=== PATIENT | female | born 1975 | race African-American/Black ===

== ENCOUNTER 2019-12-16 00:42 | Day surgery (SDC) | payer OTHER, SELFPAY ==
[2019-12-13 15:29] VITALS: BMI 32.8
--- NOTE | 2019-12-16 08:30 | WPDANESEPPF ---
Anes - Initial Pre Proc Eval Procedure: Operation Date: 12/16/19 10:00 Proposed Procedures p Esophagogastroduodenoscopy & Colonoscopy - Maulik Santiago MD Date/Time: 12/16/19 08:30 Surgeon: Maulik Santiago MD Pre Op Diagnosis: Abdominal Pain/ Diarrhea/ Fecal Urgency Patient Data Age: 44 Gender: F Height: 5 ft 7 in Weight: 95 kg Allergies Allergy/AdvReac Type Severity Reaction Status Date / Time red dye Allergy Unknown Verified 12/16/19 08:25 yellow dye Allergy Unknown Verified 12/16/19 08:25 Home Medications Medication Instructions Recorded Confirmed Type cetirizine [Zyrtec] 10 mg PO DAILY PRN 12/13/19 12/13/19 History hyoscyamine sulfate See Rx Instructions .ROUTE 12/13/19 12/13/19 History .COMPLEX PRN omeprazole 40 mg PO DAILY PRN 12/13/19 12/13/19 History Patient hx anesthesia problems: none Family hx anesthesia problems: none PMFSH Past Medical History Medical History GERD (gastroesophageal reflux disease) Social History Social History Gender identity (if verbalized by the patient): Female Anes - Eval Final PreProcedure Day of Procedure 12/16/19 08:30 Patient weight: obese Heart: regular rate and rhythm Lungs: clear to auscultation Airway: Mallampati scale class II Neurological: alert and oriented Last oral intake: >/= 8 hours ASA classification: II Emergent: yes Anesthetic plan: proceed Anesthesia type and monitoring: general GIVS and standard monitoring Informed Consent: The patient's anesthetic plan and its attendant risks and benefits were discussed with the patient/family/POA. Questions were solicited and answers provided to the satisfaction of the patient/family/POA.
[2019-12-16 08:34] VITALS: BP 131/79; PULSE 91; RESP 18; TEMP 36.2; O2SAT 100
[2019-12-16] MEDS: LACTATED RINGERS 1,000 ML 150 ML IV CONT ×2 (08:44→10:39)
--- NOTE | 2019-12-16 10:38 | P.CONGI_ITS ---
Assessment and Plan Additional Plan Abdominal pain, altered bowel habits-diarrhea, GERD, melena, family history of colon cancer. GI Consult Note Consult date/time: 12/16/19 10:38 HPI: Maggie Redmond is a 44 year old female [facility] Past Medical History Medical History GERD (gastroesophageal reflux disease) Social History Social History Gender identity (if verbalized by the patient): Female Meds Home Medications and Allergies Home Medications Medication Instructions Recorded Confirmed Type cetirizine [Zyrtec] 10 mg PO DAILY PRN 12/13/19 12/13/19 History hyoscyamine sulfate See Rx Instructions .ROUTE 12/13/19 12/13/19 History .COMPLEX PRN omeprazole 40 mg PO DAILY PRN 12/13/19 12/13/19 History Allergies Allergy/AdvReac Type Severity Reaction Status Date / Time red dye Allergy Unknown Verified 12/16/19 08:25 turkey Allergy Unknown Hives Verified 12/16/19 08:46 yellow dye Allergy Unknown Verified 12/16/19 08:25 Vital Signs Vital Signs - 24 hr 12/16/19 08:34 Temperature 36.2 C L Pulse Rate 91 Respiratory Rate 18 Blood Pressure 131/79 Pulse Oximetry 100
--- NOTE | 2019-12-16 11:04 | SUR.OPER ---
EGD COMPLETED AT 1050, COLONOSCOPY STARTED AT 1051
[2019-12-16 11:07] VITALS: BP 127/70; PULSE 80; RESP 20; O2SAT 96
[2019-12-16 11:17] VITALS: BP 130/75; PULSE 74; RESP 20; O2SAT 96
[2019-12-16 11:27] VITALS: BP 146/75; PULSE 70; RESP 16; O2SAT 96
--- NOTE | 2019-12-16 12:19 | PM.OP ---
Procedure Note - Brief Procedure Note - Brief Date of procedure: 12/16/19 Pre-op diagnosis: Abdominal Pain/ Diarrhea/ Fecal Urgency Procedure performed: EGD/Colonoscopy Anesthesia: MAC Surgeon: Maulik Santiago MD Estimated blood loss (mL): 0 Drains: No Packing: No Pathology: yes Complications: No immediate complications Condition: stable Disposition: other Findings: MAULIK SANTIAGO MD, FACG, FACP COLONOSCOPY and EGD EGD INDICATION: Epigastric pain, nausea, heartburn, bloating and melena. POST-OP: Chronic, non-erosive gastritis. Biopsies done. SEDATION: Per Anesthesia With the patient in the left lateral decubitus position, the Fujinon endoscope was used to easily intubate the esophagus and advanced to the third duodenum. Careful inspection of the mucosa was made upon insertion and withdrawal of the endoscope with retro-flexion in the stomach. Findings: Esophagus: normal. SC Junction @ 40 cm. No esophagitis, stricture, mass or Angel?s. Stomach: Fundus, body and antrum with chronic, non-erosive gastritis; biopsies taken throughout the stomach to rule out H. pylori. No ulceration, erosion, AVM or malignancy seen. Duodenum: Normal. COLONOSCOPY INDICATION: Abdominal pain, altered bowel habits-diarrhea. Family history of colon cancer. POST-OP: Normal. PREP: Good. With the patient in the left lateral decubitus position, the Fujinon colonoscope was introduced into the rectum and advanced easily to the Terminal Ileum. Careful inspection of the mucosa was made upon insertion and withdrawal of the endoscope. FINDINGS: Terminal ileum: distal 5 cm normal. Cecum, ascending colon, transverse colon, descending colon, sigmoid colon and rectum including retroflexion normal. No masses, polyps, AVMs, colitis or diverticulosis seen. No complications, blood loss or implants. ASSESSMENT AND PLAN: A. Epigastric pain, nausea, heartburn, bloating and melena: - Chronic, non-erosive gastritis - Biopsies done; f H. pylori positive will treat - Symptoms improved on omeprazole; continue - No findings to explain melena; resolved B. Altered bowel habits-diarrhea: - Resolved with Levbid; continue - Patient never got probiotics - Observe C. Family history of colon cancer: - Normal colonoscopy - I will place in our recall for repeat colonoscopy in five years Thank you very much for allowing me to share in the care of your patient. She will follow-up with my office in one month. Maulik Santiago M.D.
== END 2019-12-16 11:45 | disposition home or self-care (01) ==
PROVIDERS: Visit Provider Internal Medicine Gastroenterology
PROC: 0DJ08ZZ Inspection of Upper Intestinal Tract, Via Natural or Artificial Opening Endoscopic (ICD-10-PCS; CPT 43235; principal; 2019-12-16 10:00)
DX: K29.50 Unspecified chronic gastritis without bleeding (principal); K21.9 Gastro-esophageal reflux disease without esophagitis; R19.7 Diarrhea, unspecified; Z80.0 Family history of malignant neoplasm of digestive organs; E66.9 Obesity, unspecified; Z68.31 Body mass index [BMI] 31.0-31.9, adult
CPT/HCPCS: 43239; 45378; 88305; J2704; J7120